=== PATIENT | female | born 1985 | race Caucasian/White ===

== ENCOUNTER → 2018-04-09 | Outpatient (CLI) | payer OTHER | LOC: FIMAGING 14:36 | PROVIDERS: ATTEND Advanced Practice Midwife | DX: O09.521 Supervision of elderly multigravida, first trimester (principal); O34.219 Maternal care for unspecified type scar from previous cesarean delivery; Z3A.12 12 weeks gestation of pregnancy ==

== ENCOUNTER → 2018-05-21 | Outpatient (CLI) | payer OTHER | LOC: FIMAGING 13:53 | PROVIDERS: ATTEND Advanced Practice Midwife | DX: O09.212 Supervision of pregnancy with history of pre-term labor, second trimester (principal); O09.522 Supervision of elderly multigravida, second trimester; Z3A.18 18 weeks gestation of pregnancy ==

== ENCOUNTER 2018-09-19 16:04 | Inpatient (IN) | payer OTHER ==
[2018-09-19] MEDS ORDERED: BETAMETHASONE IM SYRINGE IM ONE (17:53)
[2018-09-19] MEDS ORDERED: AMPICILLIN SODIUM 2 GM in NS 100 ML IV ONE (19:47)
[2018-09-19] MEDS ORDERED: LR 1,000 ML IV PRN (19:47)
[2018-09-19] MEDS ORDERED: MISOPROSTOL 200 MCG TAB PR PRN (19:47)
[2018-09-19] MEDS ORDERED: OXYTOCIN/RINGERS LACTATE 1,000 ML IV PRN (19:47)
[2018-09-19] MEDS ORDERED: TERBUTALINE SULFATE 1 MG/ML VIAL IV PRN (19:47)
[2018-09-19] MEDS ORDERED: EPSOM SALT 454 GM TP PRN (19:47)
--- NOTE | 2018-09-19 19:47 | PDGENHP ---
History and Physical History and Physical: Care: [facility] HPI: Patient is a 33yo with IUP @ 36-1weeks that presents to L&D with complaints of SROM @ 0730. She states she noticed a trickle but then it stopped until 10 and she noticed it again. She denies any contractions, or VB. She reports +FM. EDC: 10/16/18 which is based on LMP:01/09/18which is known and consistent with Ultrasound at 8 weeks. Her is complicated by: AMA, prior c/s, h/o PTD @ 35wks (PPROM), h/o depression/anxiety Review of Systems: Constitutional: Denies any fever, chills, or fatigue HEENT: denies any visual changes, difficulty swallowing, hearing loss Cardiovascular: Denies any chest pain, palpitations, leg swelling Respiratory: denies any cough, wheezing, or shortness of breathe GI: Denies any nausea, vomiting, diarrhea, constipation : denies any dysuria, urgency, frequency, vaginal bleeding Musculoskeletal: denies any muscle or bone pain Skin: denies any rashes Neuro: denies any headache, seizures, lightheadedness, dizziness, or loss of consciousness Psychiatric: denies any depression, anxiety, or SI/HI thoughts HISTORY: Previous OB history: c/s 2013 PTD (breech), SAB with D&C 2017 Past medical history: anxiety and depression, headaches (no meds) Past surgical history: c/s, D&C Social: Denies any alcohol, tobacco, or drug use. Family history: Not relevant Medications: PNV, unisom, vit B6, 17-OHP Allergies (list reaction): NKDA LABS: Rh: A+ ABS: Neg Rubella: Immune HbsAg: NR HIV: NR VDRL: NR 1hr: 132 GC: Neg Chlamydia: Neg Pap: Normal GBS: unknown, collected at admission BMI: (prepreg) 26 PHYSICAL EXAM: Constitutional: WN, A&Ox3 HEENT: normocephalic atraumatic, supple Skin: Warm, dry, intact Heart: RRR, no murmur Chest: CTA-B Abdomen: Soft, nontender, gravid SVE: deferred Extremities: no edema, negative homans sign Neuro: grossly normal Psych: normal affect assessment: FHT baseline 130 +accels, no decels, moderate variability Contractions: toco q 7 Assessment: * 33 yo with IUP@36-1wks * Breech * prior c/s * PPROM/no evidence of labor * GBS unknown * Cat 1 FHR tracing Plan: * Admit to L&D * antibiotics 2/2 unknown GBS, GBS collected * IV fluids * steriods, will repeat @ 12hrs * ASSISTANT FIELD HOCKEY COACH consult * Discussed with MFM fellow @ and agrees with plan of care * Discussed with Dr Kapoor- get and agrees with plan of care, will consent pt Today's visit was approximately 45 min, of which >50% of visit 30 min, was spent face to face with pt on direct counseling/coordination of care.
--- NOTE | 2018-09-19 21:02 | SOAPPROG ---
SOAP Progress Note Assessment/Plan: Assessment: 33 year old mother who presented to L&D with PROM at 36 weeks. Plan: Transport Pilot mother on plan regarding care and management of infant born at 36 weeks. Discuss plan for baby in OR (). 09/19/18 20:56 Subjective: 35 week mother who presented to Labor and Delivery with ROM at 0730 on 09/19. She delivered her first daughter at 35 weeks via section. This baby is breech. She is not currently in labor and has received betamethasone and will receive antibiotics for GBS prophylaxis secondary to pending GBS. Objective: I spoke with Carmen regarding the delivery of a baby at 36 weeks gestation. We discussed the OR/ section and the plan to do skin to skin as soon as possible if the baby does not require interventions that would require her to stay on warmer such as oxygen or CPAP. We discussed breast feeding and supplementing with donor milk. I informed her that would be monitoring blood glucoses for the first 12 to 24 hours of life. These parents had a daughter at 35 weeks who is now 4 years old, who did well and was discharged from well baby nursery at 5 days of life. I also discussed the possible need for oxygen due to prematurity and altitude. Her was not at the bedside while I was there but was on his way back to the hospital. I told Carmen I would be happy to speak with him if he had any questions or concerns. I also reviewed the set up of our [facility] in case the baby would need to transfer there and that she would be followed by the director hedis from [facility] along with a insurance verify rep who will round on the baby daily (in Mom/Baby and SCN). ICD10 Worksheet Patient Problems: Problems Problem Status Onset ROM (rupture of membranes), premature Acute - ICD10 Problem Qualifiers (1) ROM (rupture of membranes), premature Qualifiers: PROM gestational age: -third trimester
--- NOTE | 2018-09-19 21:27 | OBPROG ---
Labor Progress Note Assessment/Plan: Assessment: 33 y/o @ 36 1/7 weeks PPROM and breech presentation Plan: We had a long discussion about plan of care. She received her dose of BMZ @ 18: 30 and we could decide to proceed with delivery tonight or in the am after the 2nd dose of BMZ 12 hours later. We discussed with MFM and she felt that shared decision making with the patient and providers is appropriate and while delayed delivery for 12 hours is not always conventional, it is not unreasonable and out of the scope of good practice. Carmen would like to wait for the benefits of the steroids for lung maturity and she would like to have her delivery tomorrow. I explained that as long as she and the baby remain stable without signs/ symptoms of infection or active labor tomorrow am is ok. We will proceed with surgery at any time her clinical situation evolves. I consented her for surgery and Dr Huerta is aware as well. 09/19/18 21:31 Subjective/Intrapartum Course: 09/19/18 21:21 Pt is doing better this evening. She and her have been very emotional today due the loss of their dog. She denies cramping/ contractions or any abdominal pain, fever/ chills.. She is continues to have LOF clear. She is happy to rest tonight and plan for delivery in the am. Objective: BP 143/78, P 75, RR 16, T 37.3 - Contraction Pattern Assessment Current Contraction Pattern: Irregular (irritability) - FHR Assessment Bray FHR (bpm): 140 FHR Pattern Variability: Moderate FHR Category: 1 - AP Antepartum Course: 09/19/18 21:29 AMA, normal NIPT and Level II ultrasound H/o PPROM and PTD @ 35 6/7 weeks H/o c section secondary to breech H/o depression/ anxiety no current meds - Physical Exam General Appearance: WD/WN, alert, no apparent distress Estimated Weight: 2501-3400g Neck: non-tender, full range of motion, supple Respiratory: chest non-tender, lungs clear, normal breath sounds Cardiac/Chest: regular rate, rhythm Abdomen: normal bowel sounds, other (gravid, NT) Extremities: swelling (no), Gemma's sign (neg) Oxytocin Orders Assessment - Pre-Induction/Augmentation Assessment Gestational Age: 36 week(s) and 1 day(s) ICD10 Worksheet Patient Problems: Problems Problem Status Onset ROM (rupture of membranes), premature Acute
[2018-09-19 21:28] LABS: PLATELET COUNT 242 10^3/uL (150-400)
[2018-09-19] MEDS ORDERED: diphenhydrAMINE 25 MG CAP PO PRN (22:49)
[2018-09-20] MEDS: AMPICILLIN SODIUM 1 GM in NS 100 ML IV SCH ×3 (00:40→17:57)
[2018-09-20] MEDS ORDERED: MISOPROSTOL 200 MCG TAB ONE (02:08)
[2018-09-20] MEDS ORDERED: OXYTOCIN 10 UNIT/ML VIAL ONE (02:08)
[2018-09-20] MEDS ORDERED: morphINE PF 5 MG/10 ML INJ ONE (02:12)
[2018-09-20] MEDS ORDERED: ceFAZolin 2 GM/DEXTROSE 100 ML IV ONE (02:17)
[2018-09-20] MEDS ORDERED: CITRIC ACID/SODIUM CITRATE 30 ML UDCUP PO ONE (02:17)
[2018-09-20] MEDS ORDERED: ONDANSETRON 4 MG/2 ML VIAL IVP PRN (05:24)
[2018-09-20] MEDS ORDERED: fentaNYL 100 MCG/2 ML INJ IVP PRN (05:24)
[2018-09-20] MEDS ORDERED: NALOXONE HCL 0.4 MG/ML INJ IVP PRN (05:24)
--- NOTE | 2018-09-20 05:24 | PDANEPAE ---
ANE History of Present Illness Healthy 33 year old female for for Breech presentation. ANE Past Medical History - Cardiovascular History Hx Hypertension: No Hx Arrhythmias: No Hx Chest Pain: No Hx Coronary Artery / Peripheral Vascular Disease: No Hx CHF / Valvular Disease: No Hx Palpitations: No - Pulmonary History Hx COPD: No Hx Asthma/Reactive Airway Disease: No Hx Recent Upper Respiratory Infection: No Hx Oxygen in Use at Home: No Hx Sleep Apnea: No Sleep Apnea Screening Result - Last Documented: Negative ANE Review of Systems Review of systems is: negative Review of Systems: ANE Patient History - Allergies Allergies/Adverse Reactions: No Known Allergies Allergy (Unverified 09/19/18 16:52) - Home Medications Home Medications: Doxylamine Succinate [Unisom Sleep Aid] 1 tab PO DAILY 09/19/18 [Last Taken Unknown] Magnesium 1 tab PO DAILY 09/19/18 [Last Taken Unknown] Vit27&Calcium/Iron/FA [] 1 tab PO DAILY 09/19/18 [Last Taken Unknown] Vit B6/Me-Thfolate/Me-B12/Ala [Nufola Capsule] 1 cap PO DAILY 09/19/18 [Last Taken Unknown] - NPO status NPO Since - Liquids (Date): 09/20/18 NPO Since - Liquids (Time): 00:30 NPO Since - Solids (Date): 09/19/18 NPO Since - Solids (Time): 19:00 - Smoking Hx Smoking Status: Never smoked ANE Labs/Vital Signs - Labs Result Diagrams: 09/19/18 21:05 09/19/18 21:05 - Vital Signs Blood Pressure: 131/72 Heart Rate: 83 Respiratory Rate: 20 O2 Sat (%): 99 Height: 162.56 cm Weight: 88.451 kg ANE Physical Exam - Airway Neck exam: FROM Mallampati Score: Class 2 Mouth exam: normal dental/mouth exam - Pulmonary Pulmonary: no respiratory distress - Cardiovascular Cardiovascular: regular rate and rhythym - ASA Status ASA Status: I, E ANE Anesthesia Plan Anesthesia Plan: spinal
[2018-09-20] MEDS ORDERED: DOCUSATE SODIUM 100 MG CAP PO PRN (05:45)
[2018-09-20] MEDS ORDERED: PROMETHAZINE HCL 25 MG/ML INJ IVP PRN (05:45)
[2018-09-20] MEDS ORDERED: SIMETHICONE 80 MG TAB CHEW PO PRN (05:45)
[2018-09-20] MEDS ORDERED: LACTULOSE 20 GM/30 ML UDCUP PO PRN (05:47)
[2018-09-20] MEDS ORDERED: POLYETHYLENE GLYCOL 3350 17 GM PKT PO PRN (05:47)
[2018-09-20] MEDS ORDERED: MAGNESIUM HYDROXIDE 30 ML UDCUP PO PRN (05:47)
[2018-09-20] MEDS ORDERED: BISACODYL 10 MG SUPP PR PRN (05:47)
--- NOTE | 2018-09-20 05:50 | OBDEL ---
Info Type: Repeat Presentation at Delivery: Breech L&D Analgesia/Anesthesia Type: Spinal GBS+: No (unknown status @ 36 weeks) Antibiotic Used for + GBS: Ampicillin Intrapartum Medications: Generic Name Dose Route Start Last Admin Trade Name Freq PRN Reason Stop Dose Admin Diphenhydramine HCl 25 - 50 mg 09/19/18 22:49 09/19/18 23:00 Benadryl PO 03/18/19 22:48 50 mg Q6HRS PRN Administration Itching Ampicillin Sodium 1 gm/ Sodium 100 mls @ 200 mls/hr 09/20/18 00:00 09/20/18 03:36 Chloride IV 10/20/18 00:00 100 mls Q4H HA Administration Protocol Lactated Ringer's 1,000 mls @ 0 mls/hr 09/19/18 19:47 09/20/18 02:13 Lr IV 09/20/18 19:46 1,000 mls PRN PRN Administration SEE PROTOCOL CONDITIONS Protocol Per Protocol Discontinued Medications Generic Name Dose Route Start Last Admin Trade Name Freq PRN Reason Stop Dose Admin Betamethasone Acet/Betameth SodPhos 12 mg 09/19/18 17:53 09/19/18 18:10 Celestone Im Syringe IM 09/19/18 17:54 12 mg ONCE ONE Administration Citric Acid/Sodium Citrate 30 ml 09/20/18 02:17 09/20/18 03:55 Bicitra PO 09/20/18 02:18 30 ml ONCALL ONE Administration Ampicillin Sodium 2 gm/ Sodium 110 mls @ 220 mls/hr 09/19/18 19:47 09/19/18 20:19 Chloride IV 09/19/18 20:16 110 mls ONCE ONE Administration Protocol Cefazolin Sodium/Dextrose 100 mls @ 200 mls/hr 09/20/18 02:17 09/20/18 03:56 Ancef IV 09/20/18 02:46 100 mls ONCALL ONE Administration Protocol - Infant Care Provider Automotive Engineer/CREDIT ADMINISTRATION MANAGER: Desiree Nova - Hospital Course Intrapartum: 09/19/18 21:21 Pt is doing better this evening. She and her have been very emotional today due the loss of their dog. She denies cramping/ contractions or any abdominal pain, fever/ chills.. She is continues to have LOF clear. She is happy to rest tonight and plan for delivery in the am. Indications for Delivery: SROM, PPROM Operative Report - Delivery Pre-op Diagnoses: IUP @ 36 2/7 weeks, PPROM, breech presentation, in labor Post-op Diagnoses: same History of Prior Section: Yes Number of Prior Sections: 1 Nulliparous Prior to Delivery: No Indications for Prior Section: Breech, Other (Specify) (35 6/7 weeks, PPROM in labor) Indications for Current Section: Breech, Other (Specify) (PPROM @ 36 weeks) Procedure: Unscheduled Surgeon: Julianne Kapoor Jig And Fixture Builder Apprentice: Amy Moore Anesthesiologist: Berta Phipps Complications: None Findings: normal uterus, tubes and ovaries IV Fluid (ml): 1,100 EBL: 700 Data MURIEL: 10/16/18 Gestational Age: 36 week(s) and 2 day(s) Bray Delivery Date: 09/20/18 Delivery Time: 04:58 Sex of : Female [place] Weight (gm): 2579.807 g Score (1 Min): 8 Score (5 Min): 9 ICD10 Worksheet Patient Problems: Problems Problem Status Onset Delivery by section for breech presentation Acute ROM (rupture of membranes), premature Acute - ICD10 Problem Qualifiers (1) Delivery by section for breech presentation
--- NOTE | 2018-09-20 06:04 | POSTANESTH ---
Post Anesthetic Evaluation Cardiovascular Status: Normal, Stable Respiratory Status: Normal, Stable Level of Consciousness/Mental Status: Can Participate in Eval Pain Control: Adequate, Prn Tx Ordered Nausea/Vomiting Control: Adequate, Prn Tx Ordered Complications Possibly Related to Anesthesia: None Noted
[2018-09-20] MEDS ORDERED: KETOROLAC 30 MG/1 ML SDV ONE (07:57)
[2018-09-20] MEDS: KETOROLAC 30 MG/1 ML SDV IVP SCH ×3 (07:58→20:01)
--- NOTE | 2018-09-20 17:07 | GOP ---
DATE OF OPERATION: 09/20/2018 SURGEON: Julianne Kapoor MD LEACH CELL OPERATOR: Amy Moore CNM ANESTHESIA: Spinal. ANESTHESIOLOGIST: Dr. Berta Phipps PREOPERATIVE DIAGNOSIS: Intrauterine at 36-2/7 weeks gestation with premature rupt ure of the membranes and breech presentation. POSTOPERATIVE DIAGNOSIS: Intrauterine at 36-2/7 weeks gestation with premature rup ture of the membranes and breech presentation. PROCEDURE PERFORMED: Repeat lower transverse section. FINDINGS: Viable female, Apgars of 8 and 9, weight of 5 pounds 11 ounces. ESTIMATED BLOOD LOSS: 700 cc INDICATIONS: The patient is a 33-year-old 3, para 0-1-1-1, at 36-1/7 weeks' gestation, who p resented on 09/19/2018 complaining of leakage of fluid and without contractions. She was admitted to Labor and Delivery. She was assessed and had a positive AmniSure. She was given a course of betame thasone to promote lung maturity and the plan was to expectantly manage her, to give her second dose of betamethasone at a 12-hour interval, and schedule delivery approximately 8 a.m. on the 4th. At approximately 2:30 a.m. on the 4th, patient began developing increased contractions that were bec oming regular and painful, and she was having more leakage of fluid. Decision was made to proceed wi th delivery for labor. Patient had been consented for the . She understood the risks and b enefits, the risks including bleeding; infection; damage to internal organs, uterus, tubes, ovaries, bowel, bladder, nerves, blood vessels, ureters; risk of injury; risk of blood transfusion, hyst erectomy, and . She understood these risks and benefits and agreed to proceed. DESCRIPTION OF PROCEDURE: Patient was taken to the operating room, where she was placed with spinal anesthesia without difficulty. She was prepped and draped in the dorsal supine position with a leftw quentin tilt, and a Segura catheter was placed in her bladder. After adequate anesthesia was assured and a WHO time-out was performed, a transverse skin incision was made in the previous scar. Th e incision was carried down to the underlying layer of fascia with the knife. Fascia was incised in the midline. Fascial incision was extended laterally with Lucas scissors. Superior aspect of the fas cial incision was grasped with a Cortney clamp, elevated, and the rectus muscles were dissected off sh arply. Inferior aspect of the fascial incision was grasped with the Cortney clamps, elevated, and the rectus muscles were dissected off sharply. Rectus muscles were in the midline. Peritonea l incision was extended superiorly and inferiorly with good visualization of the bladder. Bladder bl ursula was inserted. The vesicouterine peritoneum was grasped with the pickups and entered sharply with Metzenbaum scissors. The incision was extended laterally and bladder flap was created digitally. B ladder blade was reinserted. The uterus was incised with a knife. There was clear amniotic fluid up on entry to the uterine cavity. The baby was in vera breech presentation. She was delivered with s tandard breech extraction maneuvers. We delayed cord clamping for 1 minute. She was vigorous and tu rning pink on the OR table. Cord was clamped and cut. The was handed off to the waiting neon atal nurse practitioners. Cord bloods were sent. Placenta was removed manually. The uterus was ext eriorized, cleared of all clots and debris. The uterine incision was closed with 0 Vicryl in a runni ng locked fashion. Second imbricating layer of suture was performed with 0 Vicryl and good hemostasi s was assured. The uterus was returned to the abdomen. Gutters were cleared of all clots and debris . Reinspection of the uterine incision again assured hemostasis. The rectus muscles were approximat ed with 2-0 Vicryl in inverted mattress fashion. Fascia was closed with #1 Vicryl in a running fashi on. Subcuticular layer was closed with 2-0 Vicryl and the skin was closed with 4-0 Vicryl. Patient tolerated the procedure well. Sponge, lap, needle, and instrument counts were correct x3. Patient w ent to the recovery room in good condition. FLUID REPLACEMENT: 1100 cc URINE OUTPUT: 150 /[id number]/MODL
[2018-09-20] MEDS: ACETAMINOPHEN 325 MG TAB PO SCH (17:58)
[2018-09-21] MEDS ORDERED: KETOROLAC 30 MG/1 ML SDV IVP ONE (02:15)
[2018-09-21] MEDS: KETOROLAC 30 MG/1 ML SDV IVP SCH (02:19)
[2018-09-21] MEDS: ACETAMINOPHEN 325 MG TAB PO SCH ×5 (08:26→20:25)
[2018-09-21] MEDS: IBUPROFEN 600 MG TAB PO SCH ×4 (08:27→20:22)
[2018-09-21] MEDS: SENNOSIDES/DOCUSATE SODIUM TAB PO SCH ×5 (08:27→20:26)
--- NOTE | 2018-09-21 13:14 | OBPP ---
Progress Note Assessment/Plan: Assessment: Plan: 09/21/18 13:13 PPD #! post repeat csection Nipples red, breasts soft 1) APNO ointment ordered 2) Abdominal binder when ambulating 3) Desires discharge home tomorrow Subjective/ Course: 09/21/18 13:11 Overall doing well. Pain controlled well with current medications. Has ambulated back and forth to the bathroom without difficulty. States nursing going well. Nipples a little sore. Passing gas and voiding without difficulty. Overall happy with care. Objective: 09/21/18 06:15 09/19/18 21:05 Patient ABO/Rh A POSITIVE 09/19/18 21:05 Total Bilirubin 0.5 mg/dL (0.1-1.4) 09/19/18 21:05 AST 23 IU/L (14-46) 09/19/18 21:05 ALT 20 IU/L (9-52) 09/19/18 21:05 Group B Strep DNA NEGATIVE (NEGATIVE) 09/19/18 18:25 Temp Pulse Resp BP Pulse Ox 36.8 C 70 18 123/77 H 96 09/21/18 08:00 09/21/18 08:00 09/21/18 08:00 09/21/18 08:00 09/21/18 08:00 Incision site - covered with minimal bleeding noted through covering. No redness around the area. Breasts: Nipples red, breasts soft Uterine Position/Fundal Height: At Umbilicus Uterine Tone: Firm
[2018-09-21] MEDS: oxyCODONE IR 5 MG TAB PO PRN ×2 (14:22→20:23)
[2018-09-22] MEDS: oxyCODONE IR 5 MG TAB PO PRN ×5 (02:37→18:32)
[2018-09-22] MEDS: ACETAMINOPHEN 325 MG TAB PO SCH ×4 (02:38→20:34)
[2018-09-22] MEDS: IBUPROFEN 600 MG TAB PO SCH ×4 (02:38→20:33)
[2018-09-22] MEDS: SENNOSIDES/DOCUSATE SODIUM TAB PO SCH ×2 (08:34→20:33)
--- NOTE | 2018-09-22 11:34 | OBPP ---
Progress Note Assessment/Plan: Assessment: 33 y/o P2 s/p repeat C/S for PPROM and breech presentation POD #2 going well Plan: Routine pp care Plan d/c home tomorrow 09/22/18 11:31 09/22/18 11:36 Subjective/ Course: 09/21/18 13:11 Overall doing well. Pain controlled well with current medications. Has ambulated back and forth to the bathroom without difficulty. States nursing going well. Nipples a little sore. Passing gas and voiding without difficulty. Overall happy with care. 09/22/18 11:34 Feeling good. going well. Pain well controlled with oral pain meds. Vag bleeding wnl, voiding, tolerating regular diet, ambulating and voiding. Passing gas, but no BM yet. Objective: 09/21/18 06:15 09/19/18 21:05 Patient ABO/Rh A POSITIVE 09/19/18 21:05 Total Bilirubin 0.5 mg/dL (0.1-1.4) 09/19/18 21:05 AST 23 IU/L (14-46) 09/19/18 21:05 ALT 20 IU/L (9-52) 09/19/18 21:05 Group B Strep DNA NEGATIVE (NEGATIVE) 09/19/18 18:25 Temp Pulse Resp BP Pulse Ox 36.6 C 75 16 121/72 H 96 09/22/18 08:30 09/22/18 08:30 09/22/18 08:30 09/22/18 08:30 09/22/18 05:30 Uterine Position/Fundal Height: Umbilicus -1 Uterine Tone: Firm Physical Exam - Physical Exam EENT: PERRL/EOMI Neck: non-tender Respiratory: normal breath sounds Cardiac/Chest: regular rate, rhythm Abdomen: normal bowel sounds, flatus, incision (steri strips intact, incision well approximated) Extremities: normal range of motion Back: Normal inspection Skin: normal color, warm/dry Neuro/Psych: no motor/sensory deficits, alert, normal mood/affect, oriented x 3
[2018-09-23] MEDS: ACETAMINOPHEN 325 MG TAB PO SCH ×2 (02:51→09:36)
[2018-09-23] MEDS: IBUPROFEN 600 MG TAB PO SCH ×2 (02:52→09:35)
[2018-09-23] MEDS: oxyCODONE IR 5 MG TAB PO PRN ×2 (06:12→13:37)
[2018-09-23] MEDS: SENNOSIDES/DOCUSATE SODIUM TAB PO SCH (09:35)
[2018-09-23 09:36] VITALS: BP 137/91
--- NOTE | 2018-09-23 11:50 | OBPP ---
Progress Note Assessment/Plan: Assessment: Plan: Subjective/ Course: 09/21/18 13:11 Overall doing well. Pain controlled well with current medications. Has ambulated back and forth to the bathroom without difficulty. States nursing going well. Nipples a little sore. Passing gas and voiding without difficulty. Overall happy with care. 09/22/18 11:34 Feeling good. going well. Pain well controlled with oral pain meds. Vag bleeding wnl, voiding, tolerating regular diet, ambulating and voiding. Passing gas, but no BM yet. 09/23/18 11:48 Doing well. Ambulating in halls. BF going well, supplementing with pumped milk. BM today. Objective: 09/21/18 06:15 09/19/18 21:05 Patient ABO/Rh A POSITIVE 09/19/18 21:05 Total Bilirubin 0.5 mg/dL (0.1-1.4) 09/19/18 21:05 AST 23 IU/L (14-46) 09/19/18 21:05 ALT 20 IU/L (9-52) 09/19/18 21:05 Group B Strep DNA NEGATIVE (NEGATIVE) 09/19/18 18:25 Temp Pulse Resp BP Pulse Ox 36.5 C 65 16 137/91 H 96 09/23/18 08:00 09/23/18 08:00 09/23/18 08:00 09/23/18 08:00 09/23/18 08:00 VSS Uterine Position/Fundal Height: At Umbilicus Uterine Tone: Firm Physical Exam - Physical Exam Respiratory: lungs clear, normal breath sounds Cardiac/Chest: regular rate, rhythm Abdomen: normal bowel sounds, flatus Extremities: pedal edema Skin: normal color, warm/dry (incision well healed)
--- NOTE | 2018-09-23 11:53 | OBGCSDC ---
General Delivery Information - General Info : 3 Para: 2 Abortions: 1 Type: Repeat L&D Analgesia/Anesthesia Type: Spinal, Nitrous, Other (Specify) Admission Date: 09/19/18 Labs: Patient ABO/Rh A POSITIVE 09/19/18 21:05 Hct 28.9 % (38.0-47.0) L 09/21/18 06:15 Group B Strep DNA NEGATIVE (NEGATIVE) 09/19/18 18:25 - Hospital Course Antepartum: 09/19/18 21:29 AMA, normal NIPT and Level II ultrasound H/o PPROM and PTD @ 35 6/7 weeks H/o c section secondary to breech H/o depression/ anxiety no current meds Intrapartum: 09/19/18 21:21 Pt is doing better this evening. She and her have been very emotional today due the loss of their dog. She denies cramping/ contractions or any abdominal pain, fever/ chills.. She is continues to have LOF clear. She is happy to rest tonight and plan for delivery in the am. : 09/21/18 13:11 Overall doing well. Pain controlled well with current medications. Has ambulated back and forth to the bathroom without difficulty. States nursing going well. Nipples a little sore. Passing gas and voiding without difficulty. Overall happy with care. 09/22/18 11:34 Feeling good. going well. Pain well controlled with oral pain meds. Vag bleeding wnl, voiding, tolerating regular diet, ambulating and voiding. Passing gas, but no BM yet. 09/23/18 11:48 Doing well. Ambulating in halls. BF going well, supplementing with pumped milk. BM today. - Delivery Providers Surgeon: Julianne Kapoor Life Insurance Salesperson: Amy Moore Anesthesiologist: Berta Phipps - Delivery Number of Prior Sections: 1 Indications for Current Section: Breech, Other (Specify) (PPROM @ 36 weeks) Surgical Procedures: Unscheduled Intra-op Complications: None EBL: 700 [place] Data MURIEL: 10/16/18 Gestational Age: 36 week(s) and 5 day(s) Bray Delivery Date: 09/20/18 Delivery Time: 04:58 Sex of Infant: Female Weight (gm): 2586 g Score (1 Min): 8 Score (5 Min): 9 Discharge Information - Discharge Information Prescriptions: oxyCODONE IR [Oxycodone Ir (*)] 5 mg PO Q4HRS PRN #10 tab PRN Reason: Pain, Severe Ibuprofen [Motrin (*)] 600 mg PO Q6H #60 tab Condition: Good Instruction/Follow Up: Two Weeks, Four Weeks, Six Weeks
== END 2018-09-23 14:15 | disposition home or self-care (01) | DRG 788 ==
LOC: OBSVTOIN 16:04 → FLD 16:04 → FOB 09-20 08:49
PROVIDERS: ADMIT Advanced Practice Midwife; ATTEND Advanced Practice Midwife
PROC: 10D00Z1 Extraction of Products of Conception, Low, Open Approach (ICD-10-PCS; principal; 2018-09-19)
DX: O32.1XX0 Maternal care for breech presentation, not applicable or unspecified (principal); O34.219 Maternal care for unspecified type scar from previous cesarean delivery; O99.824 Streptococcus B carrier state complicating childbirth; O42.913 Preterm premature rupture of membranes, unspecified as to length of time between rupture and onset of labor, third trimester; Z3A.36 36 weeks gestation of pregnancy; Z37.0 Single live birth
CPT/HCPCS: J0290; J0690; J0702; J1200; J1885; J2274; J2590